=== PATIENT | female | born 1965 | race Native Hawaiian/Other Pacific Islander ===

== ENCOUNTER 2023-04-12 09:04 | Emergency (ER) | payer OTHER, SELFPAY ==
[2023-04-12 09:12] VITALS: BP 123/71; PULSE 88; RESP 20; TEMP 36.9; O2SAT 97
--- NOTE | 2023-04-12 09:25 | ED.GENADULT ---
HPI - General Adult General Chief complaint: Upper Respiratory Infection Stated complaint: fatigue,nausea Source: patient Mode of arrival: ambulatory Limitations: no limitations History of Present Illness HPI narrative: Patient presents for evaluation of sick symptoms for last 4 days. Symptoms include fever, chills, nonproductive cough, sore throat, nausea, generalized body aches and diarrhea. No otalgia or SOB. 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 She does not smoke. She is taking Tylenol for symptoms with improvement thereafter. Related Data Home Medications Medication Instructions Recorded Confirmed albuterol sulfate 90 mcg/actuation 1 puff inhalation DIRECTED 04/12/23 04/12/23 aerosol inhaler amlodipine 10 mg tablet 10 mg PO DIRECTED 04/12/23 04/12/23 atorvastatin 20 mg tablet 20 mg PO DIRECTED 04/12/23 04/12/23 beclomethasone dipropionate 40 1 inh inhalation DIRECTED 04/12/23 04/12/23 mcg/actuation HFA breath activated aerosol (Qvar RediHaler) fluoxetine 40 mg capsule 40 mg PO DIRECTED 04/12/23 04/12/23 trazodone 100 mg tablet 100 mg PO DIRECTED 04/12/23 04/12/23 Allergies Allergy/AdvReac Type Severity Reaction Status Date / Time No Known Allergies Allergy Verified 04/12/23 09:25 Review of Systems Review of Systems: CONSTITUTIONAL: Reports fever and chills. EYES: Denies visual changes, redness, or discharge. ENT: Reports sore throat. denies rhinorrhea, congestion, or otalgia. CARDIOVASCULAR: Denies chest pain, palpitations, or edema. RESPIRATORY: Reports nonproductive cough. Denies SOB GASTROINTESTINAL: Reports nausea and diarrhea. Denies abdominal pain or vomiting GENITOURINARY: Denies dysuria or hematuria. SKIN: Denies rash or itching. MUSCULOSKELETAL: Reports generalized body aches NEUROLOGIC: Denies headache, numbness, dizziness, or weakness. PSYCHIATRIC: Denies anxiety or depression. [facility] Past Medical History Medical History (Updated 04/12/23 @ 09:47 by Cristian Noriega, LIV, ) Asthma Depression Hyperlipidemia Hypertension Surgical History Surgical History (Updated 04/12/23 @ 09:32 by LIV Warren, ) History of Family History Family History (Updated 04/12/23 @ 09:40 by Cristian Noriega, [employer], ) Mother Family history non-contributory Social History Social History Smoking status: Never smoker Substance use: never Living arrangements: with family Gender identity (if verbalized by the patient): Female Sexual Orientation (if Verbalized by the Patient): Straight or Heterosexual Spiritual care concerns: No Exam Narrative: GENERAL: Well-appearing, well-nourished, and in no acute distress. HEAD: Normocephalic, atraumatic. EYES: PERRLA and EOMI. ENT: Nares clear, no rhinorrhea or epistaxis. Mucous membranes moist. Oropharynx without tonsillar hypertrophy exudate or other lesions however there is posterior pharyngeal erythema. Bilateral TMs pearly patiño nonbulging NECK: Supple. No adenopathy or masses. No carotid bruits or JVD CHEST: Clear to auscultation. No respiratory distress. No wheezes rales or rhonchi HEART: Regular rate and rhythm. No murmur heard. Normal peripheral pulses. ABDOMEN: Soft, nontender, nondistended, normal active bowel sounds. EXTREMITIES: Normal range of motion. No edema. SKIN: Warm, dry, no rash. NEURO: No focal deficits. Alert and oriented x3. PSYCH: Normal mood and affect. Course Course Emergency Course: This is a 57-year-old female who presented for evaluation of sick symptoms. Influenza and COVID negative. Strep positive. Will treat with amoxicillin. Increase hydration. [id number] agents for symptom management. Follow up with primary provider. Go to the emergency department for worsening symptoms. Patient in agreement with plan of care. Level of Care: Express Care V
== END 2023-04-12 10:30 | disposition home or self-care (01) ==
PROVIDERS: Emergency Provider Nurse Practitioner
DX: J02.0 Streptococcal pharyngitis (principal); E78.5 Hyperlipidemia, unspecified; I10 Essential (primary) hypertension; F41.9 Anxiety disorder, unspecified; F32.A Depression, unspecified; Z79.899 Other long term (current) drug therapy; Z20.822 Contact with and (suspected) exposure to COVID-19
CPT/HCPCS: 87426; 87804; 87880; 99213; C9803; G0463